=== PATIENT | male | born 1980 | race Caucasian/White ===

== ENCOUNTER 2016-12-27 09:55 | Emergency (ER) | payer BC ==
[2016-12-27 10:23] VITALS: BP 101/64
[2016-12-27] MEDS ORDERED: Cyclobenzaprine 10 MG Tab PO ONE (10:28)
[2016-12-27] MEDS ORDERED: Ketorolac 60 MG/2 ML SDV IM ONE (10:29)
--- NOTE | 2016-12-27 10:32 | EDM.PDOC ---
ED HPI GENERAL MEDICAL PROBLEM - General Chief Complaint: Back Pain or Injury Stated Complaint: BACK PAIN Time Seen by Provider: 12/27/16 10:29 Source of Information: Reports: Patient History Limitations: Reports: No Limitations - History of Present Illness INITIAL COMMENTS - FREE TEXT/NARRATIVE: pt arrived with pain accross his lower back and pain radiating down the left leg. he states he twisted wrong and developed acute pain. He was barely able to stand. Onset: Today, Other ( started yesterday. ) Duration: Hour(s): Location: Reports: Back Associated Symptoms: Reports: No Other Symptoms - Related Data Allergies Allergy/AdvReac Type Severity Reaction Status Date / Time cephalexin [From Keflex] Allergy Rash Verified 12/27/16 10:13 moxifloxacin [From Avelox] Allergy Joint Pain Verified 12/27/16 10:13 sulfamethoxazole Allergy Itching Verified 12/27/16 10:13 [From Bactrim] trimethoprim [From Bactrim] Allergy Itching Verified 12/27/16 10:13 Home Meds: Home Meds ClonazePAM [KlonoPIN] 12/27/16 [History] Metoprolol Succinate 12/27/16 [History] Mirtazapine 12/27/16 [History] Ranitidine HCl [Ranitidine] 12/27/16 [History] Sertraline [Zoloft] 12/27/16 [History] Past Medical History Gastrointestinal History: Reports: GERD - Past Surgical History GI Surgical History: Reports: Hernia Repair/Other, Lysis of Adhesions Social & Family History - Tobacco Use Smoking Status *Q: Never Smoker ED ROS GENERAL - Review of Systems Review Of Systems: See Below Constitutional: Reports: No Symptoms HEENT: Reports: No Symptoms Respiratory: Reports: No Symptoms Cardiovascular: Reports: No Symptoms Endocrine: Reports: No Symptoms GI/Abdominal: Reports: No Symptoms : Reports: No Symptoms Musculoskeletal: Reports: Other (pt has acute pin in the lower back) Skin: Reports: No Symptoms Neurological: Reports: No Symptoms ED EXAM,LOWER BACK PAIN/INJURY - Physical Exam Exam: See Below Text/Narrative:: pt arrived with pain in the lower back. He twisted wrong in the camper. He has severe lower back pain and some discomfort going down the left leg. Exam Limited By: No Limitations General Appearance: Alert, Anxious Ears: Normal TMs Nose: Normal Inspection Throat/Mouth: Normal Inspection Head: Atraumatic Neck: Normal Inspection Respiratory/Chest: No Respiratory Distress Cardiovascular: Regular Rate, Rhythm GI/Abdominal: Soft, Non-Tender (Male) Exam: Deferred Rectal (Males) Exam: Deferred Back Exam: Other (pt has tenderness across the lower back. He has pain going down the left leg just at the thigh on and off. He has a neg straight leg raising sign and normal toe strength. ) Extremities: Normal Inspection Course - Vital Signs Last Recorded V/S: Last Vital Signs Temp 36.8 C 12/27/16 10:21 Pulse 71 12/27/16 10:21 Resp 14 12/27/16 10:21 BP 101/64 12/27/16 10:21 Pulse Ox - Orders/Labs/Meds Orders: Active Orders 24 hr Category Date Time Status Lumbar Spine Min 4V [CR] Stat Exams 12/27/16 10:27 Taken Meds: Medications Discontinued Medications Generic Name Dose Route Start Last Admin Trade Name Freq PRN Reason Stop Dose Admin Cyclobenzaprine HCl 10 mg 12/27/16 10:28 12/27/16 10:42 Flexeril PO 12/27/16 10:29 10 mg ONETIME ONE Administration Hydromorphone HCl 0.5 mg 12/27/16 11:22 12/27/16 11:26 Dilaudid IM 12/27/16 11:23 0.5 mg ONETIME ONE Administration Ketorolac Tromethamine 60 mg 12/27/16 10:29 12/27/16 10:42 Toradol IM 12/27/16 10:30 60 mg ONETIME ONE Administration - Re-Assessments/Exams Free Text/Narrative Re-Assessment/Exam: 12/27/16 11:28 pt was given flexeril 10 mg , torodol 60mg im and dilaudid .5 mg im. He is more comfortable. Departure - Departure Time of Disposition: 11:29 Disposition: Home, Self-Care 01 Condition: Fair Clinical Impression: Muscle spasm of back - Discharge Information Referrals: PCP,None [Primary Care Provider] - Forms: ED Department Discharge Care Plan Goals: ice packs to the back send 2 packs home with him, rest, flexeril 10mg 1/2 tab am , 1/2 tab noon, 1tab hs, norco 5/325 q6h prn for pain # 10 - My Orders Last 24 Hours: My Active Orders 12/27/16 10:27 Lumbar Spine Min 4V [CR] Stat - Assessment/Plan Last 24 Hours: My Active Orders 12/27/16 10:27 Lumbar Spine Min 4V [CR] Stat
[2016-12-27] MEDS ORDERED: HYDROmorphone 0.5 MG/0.5 ML Syringe IM ONE (11:22)
--- NOTE | 2016-12-28 12:59 | CR ---
5 lumbar type vertebral bodies. Vertebral body heights are maintained. Disc heights are maintained. M ild facet arthropathy L5-S1.
== END 2016-12-27 12:24 | disposition home or self-care (01) ==
LOC: JP.ED 09:55
DX: M62.830 Muscle spasm of back (principal); K21.9 Gastro-esophageal reflux disease without esophagitis; Z98.890 Other specified postprocedural states; Z79.899 Other long term (current) drug therapy; Z88.1 Allergy status to other antibiotic agents; Z88.2 Allergy status to sulfonamides
CPT/HCPCS: 72110; 96372; 99284; A9270; J1170; J1885

== ENCOUNTER 2016-12-27 12:55 | Emergency (ER) | payer BC ==
[2016-12-27] MEDS ORDERED: Sodium Chloride 0.9% 1,000 ML IV SCH (13:00)
--- NOTE | 2016-12-27 13:28 | EDM.PDOC ---
ED HPI GENERAL MEDICAL PROBLEM - General Chief Complaint: General Stated Complaint: RECHECK Time Seen by Provider: 12/27/16 13:23 Source of Information: Reports: Patient, Family History Limitations: Reports: No Limitations - History of Present Illness INITIAL COMMENTS - FREE TEXT/NARRATIVE: pt returned because he was feeling hot all over. I did check is bp and he was found to hve a low pressure at 89/60. He was looking quite pale. Onset: Today Duration: Hour(s):, Other (pt received dilaudid because of his back pain. ) Location: Reports: Back Associated Symptoms: Reports: Weakness - Related Data Allergies Allergy/AdvReac Type Severity Reaction Status Date / Time cephalexin [From Keflex] Allergy Rash Verified 12/27/16 10:13 moxifloxacin [From Avelox] Allergy Joint Pain Verified 12/27/16 10:13 sulfamethoxazole Allergy Itching Verified 12/27/16 10:13 [From Bactrim] trimethoprim [From Bactrim] Allergy Itching Verified 12/27/16 10:13 Home Meds: Home Meds ClonazePAM [KlonoPIN] 12/27/16 [History] Metoprolol Succinate 12/27/16 [History] Mirtazapine 12/27/16 [History] Ranitidine HCl [Ranitidine] 12/27/16 [History] Sertraline [Zoloft] 12/27/16 [History] Past Medical History Gastrointestinal History: Reports: GERD - Past Surgical History GI Surgical History: Reports: Hernia Repair/Other, Lysis of Adhesions Social & Family History - Tobacco Use Smoking Status *Q: Never Smoker ED ROS GENERAL - Review of Systems Review Of Systems: See Below Constitutional: Reports: No Symptoms HEENT: Reports: No Symptoms Respiratory: Reports: No Symptoms Cardiovascular: Reports: Other (pt was just seen with back pain and he was given dilaudid .5 mg. He now feels warm all over. ) Endocrine: Reports: No Symptoms GI/Abdominal: Reports: No Symptoms : Reports: No Symptoms ED EXAM, GENERAL - Physical Exam Exam: See Below Free Text/Narrative:: Pt was given dilaudid and dropped his pressure and is feeling warm all over. Exam Limited By: No Limitations General Appearance: Alert, Anxious, Other (pt does have a history of anxiety) Ears: Normal TMs Nose: Normal Inspection Throat/Mouth: Normal Inspection Neck: Normal Inspection Cardiovascular: Regular Rate, Rhythm (Male) Exam: Deferred Rectal (Males) Exam: Deferred Back Exam: Normal Inspection Extremities: Normal Inspection Neurological: Alert, Oriented, Normal Cognition Course - Vital Signs Last Recorded V/S: Last Vital Signs Temp 35 C L 12/27/16 13:33 Pulse 52 L 12/27/16 13:25 Resp 18 12/27/16 13:25 BP 103/59 L 12/27/16 13:25 Pulse Ox 97 12/27/16 13:25 Orthostatic Blood Pressure [ 111/64 Standing] Orthostatic Blood Pressure [ 117/69 Supine] - Orders/Labs/Meds Meds: Medications Discontinued Medications Generic Name Dose Route Start Last Admin Trade Name Freq PRN Reason Stop Dose Admin Sodium Chloride 1,000 mls @ 999 mls/hr 12/27/16 13:00 12/27/16 13:18 Normal Saline IV 999 mls/hr ASDIRECTED RUFINA Administration - Re-Assessments/Exams Free Text/Narrative Re-Assessment/Exam: 12/27/16 13:40 pt arrived with low bp and feeling warm after he had .5 of dilaudid. He was given a liter of fluid. he is feeling better and his bp is better. Departure - Departure Time of Disposition: 13:44 Disposition: Home, Self-Care 01 Condition: Fair Clinical Impression: Hypotension due to medication - Discharge Information Referrals: PCP,None [Primary Care Provider] - Forms: ED Department Discharge Care Plan Goals: push fluids, follow orders sent with the pt from previous visit this am.
[2016-12-27 13:31] VITALS: BP 103/59
== END 2016-12-27 14:20 | disposition home or self-care (01) ==
LOC: JP.ED 12:55
DX: I95.2 Hypotension due to drugs (principal); K21.9 Gastro-esophageal reflux disease without esophagitis; Z98.890 Other specified postprocedural states; Z88.1 Allergy status to other antibiotic agents; Z88.2 Allergy status to sulfonamides; M62.830 Muscle spasm of back; Z79.899 Other long term (current) drug therapy
CPT/HCPCS: 72110; 96360; 96372; 99283; 99284; A9270; J1170; J1885; J7040